=== PATIENT | male | born 1990 | race Two or more races ===

== ENCOUNTER 2018-06-18 03:04 | Emergency (ER) | payer SELFPAY ==
--- NOTE | 2018-06-18 03:15 | NUR ---
pt called for triage. No answer fr ENGLISH.
--- NOTE | 2018-06-18 03:28 | NUR ---
2nd call for pt, no answer.
--- NOTE | 2018-06-18 03:47 | NUR ---
3rd call for triage. No answer. pt LWBT.
== END 2018-06-18 04:22 | disposition left against medical advice (07) ==
LOC: ER 03:09
DX: Z53.21 Procedure and treatment not carried out due to patient leaving prior to being seen by health care provider (principal)